=== PATIENT | male | born 1990 | race Hispanic/Latino ===

== ENCOUNTER 2021-08-17 12:55 | Emergency (ER) | payer BC, OTHER | END 2021-08-17 13:34 | disposition home or self-care (01) | LOC: MADERS 12:55 | DX: M54.50 Low back pain, unspecified (principal) | CPT/HCPCS: 99283 ==

== ENCOUNTER 2021-10-13 09:47 | Outpatient (CLI) | payer BC | END 2021-10-13 09:48 | disposition home or self-care (01) | LOC: MADLAB 09:47 → MADULT 09:48 | PROVIDERS: ATTEND Family Medicine | DX: N20.0 Calculus of kidney (principal) | CPT/HCPCS: 76770 ==

== ENCOUNTER 2022-05-22 19:08 | Emergency (ER) | payer BC, OTHER ==
[2022-05-22] MEDS ORDERED: Ibuprofen 600 MG TAB ONE (19:40)
[2022-05-22] MEDS ORDERED: Clindamycin/D5W 300 MG/50 ML BAG ONE (19:40)
[2022-05-22] MEDS ORDERED: Dexamethasone 10 MG/ML VIAL ONE (19:40)
[2022-05-22] MEDS ORDERED: Clindamycin 150 MG CAP ONE (19:41)
== END 2022-05-22 20:03 | disposition home or self-care (01) ==
LOC: MADERS 19:08
DX: J03.90 Acute tonsillitis, unspecified (principal)
CPT/HCPCS: 96372; 99283; J1100; J3490

== ENCOUNTER 2022-08-17 14:09 | Outpatient (CLI) | payer BC ==
[2022-08-17 14:44] LABS: #Basophils 0.1 thou/uL (0.0-0.2); #Eosinphils 0.2 thou/uL (0.0-0.7); #Lymphocytes 2.8 thou/uL (1.20-3.40); #Monocytes 0.7 thou/uL (0.11-0.59); #Neutrophils 4.7 thou/uL (1.40-6.50); %Basophils 1.4 % (0.0-1.0); %Eosinophils 1.9 % (0.0-10.0); %Monocytes 8.4 % (0.0-10.0); %Neutrophils 55.3 % (42.0-75.0); Mean Corpuscular HGB CONC 32.6 g/dL (32.0-36.0); Mean Corpuscular Hemoglobin 28.5 pg (27.0-31.0); Mean Corpuscular Volume 87.4 fl (78.0-98.0); Platelet Count 255 10x3/uL (130-400); RBC Distribution Width 12.3 % (11.5-14.5); Red Blood Cell (RBC) Count 5.63 mill/uL (4.70-6.10); White Blood Cell (WBC) Count 8.5 10x3/uL (4.8-10.8)
== END 2022-08-17 14:10 | disposition home or self-care (01) ==
LOC: MADLAB 14:09
PROVIDERS: ATTEND Internal Medicine
DX: L03.032 Cellulitis of left toe (principal); M79.89 Other specified soft tissue disorders
CPT/HCPCS: 36415; 84550; 85025

== ENCOUNTER 2023-09-06 05:53 | Emergency (ER) | payer BC ==
[2023-09-06] MEDS ORDERED: Ketorolac Tromethamine 30 MG (1 mL) VIAL ONE (06:33)
[2023-09-06 06:39] LABS: Calcium 9.5 mg/dL (7.8-10.44); Potassium 4.3 mmol/L (3.5-5.1)
[2023-09-06 06:39] LABS: Bilirubin Negative (Negative); Blood, Urine Negative (Negative); Clarity Clear (Clear); Glucose, Urine (Dipstick) Negative (Negative); Ketone, Urine Negative (Negative); Leukocyte Negative (Negative); Nitrite Negative (Negative); Protein, Urine (Dipstick) Negative (Neg-Trace); Specific Gravity, Urine 1.028 (1.002-1.036); Urobilinogen 0.2 mg/dL (Less than 2); pH, Urine 5.5 (5.0-9.0)
[2023-09-06 06:40] LABS: Bacteria/HPF Rare-Few HPF (None Seen); CAUTI Indications for Culture Pelvic or flank pain; RBC/HPF 0-3 HPF (0-3); Squamous Epithelial 0-3 HPF (0-3); Urine Culture Reflex No No; WBC/HPF 0-3 HPF (0-3)
== END 2023-09-06 07:15 | disposition home or self-care (01) ==
LOC: MADERS 05:53
DX: N13.2 Hydronephrosis with renal and ureteral calculous obstruction (principal)
CPT/HCPCS: 74176; 80048; 81001; 96372; J1885

== ENCOUNTER 2024-04-04 19:49 | Emergency (ER) | payer BC, OTHER ==
[2024-04-04] MEDS ORDERED: Dexamethasone 10 MG/ML VIAL ONE (20:20)
[2024-04-04 20:43] LABS: SARS-CoV-2 E Target Negative; SARS-CoV-2 N2 Target Negative; SARS-CoV-2 NAA Rapid Test Not Detected (NotDetected); SARS-CoV-2 RdRP gene Negative
== END 2024-04-04 20:53 | disposition home or self-care (01) ==
LOC: MADERS 19:49
DX: J06.9 Acute upper respiratory infection, unspecified (principal)
CPT/HCPCS: 96372; 99283; J1100; U0002